=== PATIENT | female | born 1965 | race Caucasian/White ===

== ENCOUNTER 2021-11-23 22:58 | Emergency (ER) | payer OTHER ==
[~2021-11-23 22:58] MED LIST: ABILIFY15 MG PO; ACIDOPHILUS LACT1 GM MC; ANORO ELLIPTA1 EACH INH; AUGMENTIN 875-1 EACH PO; AZITHROMYCIN500 MG PO; CEFDINIR300 MG PO; CLARITIN10 M2 PO; DEPAKOTE ER500 MG PO; DIVALPROEX SOD500 M1 PO; LASIX20 MG PO; LEXAPRO20 MG PO; LEXAPRO5 MG PO; LORTAB 5-325 M1 EACH PO; POTASSIUM CHLO10 MEQ PO; TOPROL XL 25 MG25 MG PO; TRAZODONE HCL150 MG PO; WELLBUTRIN 75 M75 MG PO
[2021-11-24 00:42] LABS: HEMOGLOBIN 14.9 gm/dl (12.3-15.3); RED BLOOD COUNT 4.91 M/UL (4.00-5.10)
[2021-11-24 01:12] LABS: BUN/CREATININE RATIO 7 (0-10)
[2021-11-24] MEDS ORDERED: PROTONIX40 MG PO (03:29)
== END 2021-11-24 03:41 | disposition home or self-care (01) ==
LOC: ER1 22:58
PROVIDERS: Family Medicine
DX: K44.9 Diaphragmatic hernia without obstruction or gangrene (principal); J44.9 Chronic obstructive pulmonary disease, unspecified; I10 Essential (primary) hypertension
CPT/HCPCS: 80053; 81001; 83605; 83690; 85025; 93005; 99284; Q9967